=== PATIENT | male | born 1940 | race Caucasian/White ===

== ENCOUNTER 2016-10-07 17:21 | Day surgery (SDC) | payer MEDICARE ==
[~2016-10-07] VITALS: Ht 180.3 cm; Wt 102.1 kg
[~2016-10-07 17:21] MED LIST: ASPI-558 PO; CHOL100017 PO; FISH1CAP28 PO; LOSA25TA34 PO; METF-206 PO; MULT-806 PO; SIMV20TA80 PO; SULF-95 PO; TAMS0.4C46 PO
--- OUTSIDE RECORDS SUMMARY | 2016-10-07 17:25 | XMS REPORT | Summary of Care ---
Author Author Buzz Espinoza M.D. 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 Unavailable Unavailable No Assigned PCP-Pt Confirmed Unavailable Unavailable Unavailable Unavailable Functional Status Name Dates Details Functional status health issues are not documented Status: Name Dates Details Cognitive status health issues are not documented Status: Problems Name Dates Details Urethral stricture (598.9, N35.9) Status: Active Hypogonadism male (257.2, E29.1) Status: Active History of Pyuria (791.9, N39.0) Status: Resolved Medications Name Dates Details Aspirin Low Dose 81 MG TABS Active [place] 3 CAPS * Refills: 0 Active Vitamin D 2000 UNIT Oral Capsule * Refills: 0 Active MetFORMIN HCl - 1000 MG Oral Tablet * Refills: 0 Active Zocor 20 MG Oral Tablet * Refills: 0 Active Ginkgo Biloba 60 MG Oral Capsule * Refills: 0 * Start 15-Feb-2016 Active Zinc Picolinate 25 MG Oral Tablet TAKE 2 TABLET Daily * Refills: 0 * Start 15-Feb-2016 Active Allergies and Adverse Reactions Name Dates Details lisinopril (Allergy) Status: Active Penicillins (Allergy) Status: Active Past Medical History Name Dates Details History of Anxiety associated with depression (300.4, F41.8) Status: Resolved History of BPH with obstruction/lower urinary tract symptoms (600.01, N40.1) Status: Resolved History of diabetes mellitus (V12.29, Z86.39) Status: Resolved History of Dyslipidemia (272.4, E78.5) Status: Resolved History of hypertension (V12.59, Z86.79) Status: Resolved History of Obstructive sleep apnea (327.23, G47.33) Status: Resolved History of Pyuria (791.9, N39.0) Status: Resolved Procedures Procedure Dates Details History of Anal Fissurectomy History of Colonoscopy History of Cystoscopy (Diagnostic) Procedures not documented Immunization Name Dates Details Immunizations not documented Family History Name Dates Details Family history of Status: Active Family history of cerebrovascular accident (CVA) (V17.1, Z82.3) Status: Active Family history of hypertension (V17.49, Z82.49) Status: Active Name Dates Details Family history of cerebrovascular accident (CVA) (V17.1, Z82.3) Status: Active Social History Name Dates Details - Status: Name Dates Details Never smoker Vital Signs Date Test Result Details 15-Feb-2016 09:02 BP Systolic 135 mm[Hg] Status: Comments: Location: ; Position: BP Diastolic 61 mm[Hg] Status: Comments: Location: ; Position: Heart Rate 53 /min Status: Comments: Location: ; Height 70 in Status: Weight 215 lb Status: Body Mass Index Calculated 30.85 kg/m2 Status: Body Surface Area Calculated 2.15 m2 Status: Results Date Description Value Details Results not documented Plan of Care Name Dates Details Planned Observations Planned Goals not documented Planned Encounters Appointment; Provider: Buzz Espinoza M.D. On 20-Feb-2017 09:00 Instructions Name Dates Details Instructions not documented Encounters Appointment; Buzz Espinoza M.D. Encounter Diagnosis: Problem not documented On 15-Feb-2016 08:45
--- OUTSIDE RECORDS SUMMARY | 2016-10-07 17:25 | XMS REPORT | Continuity of Care Document ---
Author Author [facility] Organization [facility] Address Unknown Phone Unavailable Allergies Medications Problems Date Dx Coded Attending Type Code Diagnosis Diagnosed By 06/29/2013 Sapna UNDERWOOD, Dionte Eaton 327.23 OBSTRUCTIVE SLEEP APNEA (ADULT) (PEDIATRIC ) Procedures Results Encounters ACCT No. Visit Date/Time Discharge Status Pt. Type Provider Facility Loc./Unit Complaint [id number] 06/29/2013 20:00:00 2013 00:01:00 DIS Outpatient Sapna UNDERWOOD, Dionte nEglish [facility]
--- OUTSIDE RECORDS SUMMARY | 2016-10-07 17:35 | XMS REPORT | Continuity of Care Document ---
Author Author [facility] Organization [facility] Address Unknown Phone Unavailable Allergies Medications Problems Date Dx Coded Attending Type Code Diagnosis Diagnosed By 06/29/2013 Sapna UNDERWOOD, Dionte Eaton 327.23 OBSTRUCTIVE SLEEP APNEA (ADULT) (PEDIATRIC ) Procedures Results Encounters ACCT No. Visit Date/Time Discharge Status Pt. Type Provider Facility Loc./Unit Complaint [id number] 06/29/2013 20:00:00 2013 00:01:00 DIS Outpatient Sapna UNDERWOOD, Dionte English [facility]
--- NOTE | 2016-10-07 18:09 | ERPDOC ---
Departure Disposition Decision Date: Oct 07, 2016 Disposition Decision Time: 19:06 Disposition: 01 DISCHARGED HOME, SELF-CARE Impression Impression Impression: Primary Impression: Elevated troponin I level Additional Impression: Hypertension Hypertension type: essential hypertension Qualified Codes: I10 - Essential ( primary) hypertension Severity: Moderate Condition: Stable Seen By: Mid-level only Referrals: JANEY NICHOLSON MD (Family) Problems/Meds/Labs Reviewed?: Yes Medications reviewed and manag: Yes Follow up care ordered?: Yes Mental Status: Alert, Oriented HPI - Cardiac General Chief Complaint: Cardiac Complaint Stated Complaint: HBP Time Seen by Provider: 17:31 Source: patient Exam Limitations: no limitations HPI - Cardiac General Initial Comments He was at work today and had onset of left arm numbness. He states that it felt exactly like when your foot falls asleep. 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 It was 210/106. He does have a history of HTN but stopped taking his medication because he was having trouble with low blood pressures. He is very active at home. He denies any cardiac history himself or any chest pain or pressure. Denies any headache or blurred vision. Occurred At: home Onset/Timing: Gradual Duration: 12-24 hrs Severity: moderate Activities at Onset/Context: rest Prior CP/Workup: no prior chest pain, no prior cardiac workup Nitro Today/Relief: no nitro taken today Aspirin Today: 81 mg x 4, provided by ED Associated Symptoms: DENIES: chest pain, cough, diaphoresis, fever/chills, headaches, loss of appetite, malaise, nausea/vomiting, rash, seizure, shortness of breath, syncope, weakness Hx of Similar Symptoms: No Allergies: Coded Allergies: Penicillins (Verified Allergy, Unknown, 04/01/11) lisinopril (Verified Adverse Reaction, Unknown, COUGH, 05/30/13) Past History Past Medical History Metabolic: hypertension Psychological: anxiety, depression Surgical History Reproductive/: other (vasectomy) Joint: shoulder Family History Family History: Negative Vaccines Hx Influenza Vaccination: Yes (FALL 2012) Hx Pneumococcal Vaccination: No Social History Smoking Status: Never smoker Substance Use Type: does not use Alcohol Intake: none Review of Systems Constitutional Constitutional: DENIES: chills, dizziness, fatigue, fever, weakness Eyes Vision: DENIES: blurring, double vision ENMT Ears: DENIES: drainage, pain Sinuses: DENIES: congestion, rhinorrhea Mouth/Throat: DENIES: painful swallowing, scratchy throat, sore throat Cardiovascular Cardiac: DENIES: chest pain, dyspnea on exertion, orthopnea Rhythm/Rate: DENIES: irregular beat, palpitations Vascular: DENIES: pedal edema, unilateral swelling Pulmonary Respiratory: DENIES: cough, dyspnea, sputum, tachypnea GI Upper Abdomen: DENIES: nausea, pain, vomiting Lower Abdomen: DENIES: constipation, diarrhea, pain General: DENIES: dysuria, frequency, urgency Integumentary Skin: DENIES: rash Neurological General: numbness, tingling, DENIES: headache, weakness Physical Exam General General Nourishment: well nourished, well developed, appears stated age, no acute distress, adult General Body Habitus: well groomed Vitals and Pain First Documented Vital Signs Date Time Temp Pulse Resp B/P Pulse Ox O2 Delivery O2 Flow Rate FiO2 10/07/16 17:33 98.8 54 18 188/91 96 Room Air Weight: Kilograms: 93.000 Height (feet): 5 Height (inches): 11.00 Triage Pain Scale: RN VS reviewed by Provider: Yes Normal Exams: Eyes: Pupils are PERRLA w/ EOMI, No scleral icterus, irritation, or foreign bodies noted ENMT: No facial trauma, nasal exudates, pharyngeal erythema, or exudates are noted Neck: Full range of motion, without adenopathy, JVD, bruits or thyromegaly Chest/Resp: Clear all pompa, with good airflow, and symmetry bilaterally CV: Regular rate and rhythm, without murmur or gallop, Pulses 2+ all extremities, capillary refill, <2 seconds all ext., no pedal edema noted Abdomen: Bowel sounds positive, soft, non-tender, non-distended, no hepatosplenomegaly, masses or bruits noted Lymphatic: No lymphadenopathy, or lymphedema noted Integumentary: No rashes, hives, or bruising noted Neurologic: Patient is alert, and oriented, cranial nerves, motor/sensory/ cerebellar, exams w/o gross deficits, to observation Psychiatric: Patient exhibits, appropriate attention, emotion and affect Differential Diagnoses Considering: Acute ME, Angina, Other (HTN, anxiety) Progress Results/Orders Orders Procedure Category Date Status Time Cbc W/Auto LAB 10/07/16 Complete Diff-Reflex Manual 17:47 Bmp - Basic Metabolic LAB 10/07/16 Complete Panel 17:47 Troponin I W LAB 10/07/16 Complete Hemolysis Index 17:47 EKG EKG 10/07/16 Logged 17:47 Iv Lock (Ed Only) EDM 10/07/16 Transmitted 17:47 Hydralazine PHA 10/07/16 Complete (Apresoline) 18:00 Place In Facility As: ADMIT 10/07/16 Transmitted Telemetry YANY 10/07/16 In Process 19:03 Troponin I W LAB 10/07/16 Logged Hemolysis Index 18:30 Troponin I W LAB 10/08/16 Verified Hemolysis Index 00:30 Troponin I W LAB 10/08/16 Verified Hemolysis Index 06:30 Enoxaparin (Lovenox) PHA 10/07/16 Complete 19:15 Aspirin (Asa) PHA 10/08/16 In Process 09:00 Lab Results Laboratory Tests Test 10/07/16 18:25 White Blood Count 10.2T/MM3 Red Blood Count 4.79M/MM3 Hemoglobin 15.6GM/DL Hematocrit 46.5% Mean Corpuscular Volume 97.1UM3 Mean Corpuscular Hemoglobin 32.6UUG Mean Corpuscular Hemoglobin Concent 33.5GM/DL RDW Standard Deviation 52.9FL Platelet Count 224T/MM3 Mean Platelet Volume 10.3UM3 Immature Granulocyte % (Auto) 0.2% Neutrophils (%) (Auto) 55.8% Lymphocytes (%) (Auto) 34.4% Monocytes (%) (Auto) 8.2% Eosinophils (%) (Auto) 1.2% Basophils (%) (Auto) 0.2% Absolute Immature Granulocyte (auto 0.02T/MM3 Absolute Neutrophils (auto) 5.7T/MM3 Absolute Lymphocytes (auto) 3.5T/MM3 Absolute Monocytes (auto) 0.8T/MM3 Absolute Eosinophils (auto) 0.1T/MM3 Absolute Basophils (auto) 0.0T/MM3 Turbidity < 20 Sodium Level 145MEQ/L Potassium Level 3.8MEQ/L Chloride Level 106MEQ/L Carbon Dioxide Level 28MEQ/L Anion Gap 11MEQ/L Blood Urea Nitrogen 14.0MG/DL Creatinine 1.2MG/DL Glomerular Filtration Rate Calc 59 BUN/Creatinine Ratio 12RATIO Glucose Level 111MG/DL Calculated Osmolality 281MOSM/KG Calcium Level 9.8MG/DL Icterus Index < 2 Troponin I 0.140ng/ml Chemistry Specimen Hemolysis < 15 Medications Current ED Medications Hydralazine HCl (Apresoline) 10 mg O ONCE IV Last administered on 10/07/16t 18 :31; Start 10/07/16 at 18:00; Stop 10/07/16 at 18:01; Status DC Progress Progress CBC is normal. BMP is negative but troponin however is 0.14. He continues to deny any chest pain at all. Did speak with Dr Rabago. He is without any ST elevation or EKG changes. He will be admitted surgical care unit for serial troponins. TREVON KASPER APRN Oct 07, 2016 18:09
[2016-10-07] MEDS ORDERED: UBID100C10 PO (18:11)
[2016-10-07] MEDS ORDERED: [UNRECOGNIZED DRUG - OTHER] PO (18:11)
[2016-10-07] MEDS ORDERED: vital reds PO (18:11)
[2016-10-07] MEDS ORDERED: CALC-946 PO (18:13)
[2016-10-07] MEDS ORDERED: TEST200V21 IM (18:13)
[2016-10-07] MEDS ORDERED: LOSA1TAB96 PO (18:17)
[2016-10-07] MEDS ORDERED: curcumin PO (18:17)
[2016-10-07] MEDS ORDERED: GAMM1POW PO (18:17)
[2016-10-07] MEDS ORDERED: 5-HY50CA2 PO (18:18)
[2016-10-07] MEDS ORDERED: 7-OX5POW2 PO (18:19)
[2016-10-07 18:34] LABS: BASOPHILS % (AUTO) 0.2 % (0-2); EOSINOPHILS # (AUTO) 0.1 T/MM3 (0-0.5); EOSINOPHILS % (AUTO) 1.2 % (0-4); HCT - HEMATOCRIT 46.5 % (41-53); HGB - HEMOGLOBIN 15.6 GM/DL (13.5-17.5); IMMATURE GRANULOCYTE # (AUTO) 0.02 T/MM3 (0.00-0.03); IMMATURE GRANULOCYTE % (AUTO) 0.2 % (0.0-0.5); LYMPHOCYTES # (AUTO) 3.5 T/MM3 (1-4.8); LYMPHOCYTES % (AUTO) 34.4 % (23-45); MEAN CORPUSCULAR HGB 32.6 UUG (26-34); MEAN CORPUSCULAR HGB CONC(MCHC 33.5 GM/DL (31-37); MEAN CORPUSCULAR VOLUME 97.1 UM3 (80-100); MEAN PLATELET VOLUME 10.3 UM3 (9.4-12.4); MONOCYTES # (AUTO) 0.8 T/MM3 (0-0.8); MONOCYTES % (AUTO) 8.2 % (0-9.0); NEUTROPHILS #(AUTO)-ABSOLUTE 5.7 T/MM3 (1.8-7.7); NEUTROPHILS % (AUTO) 55.8 % (33-66); RED BLOOD COUNT 4.79 M/MM3 (4.50-5.90); WBC - WHITE BLOOD COUNT 10.2 T/MM3 (4.5-11.0)
[2016-10-07 18:39] LABS: ANION GAP 11 MEQ/L (5-15); BUN/CREATININE RATIO 12 RATIO (6-26); CALCIUM 9.8 MG/DL (8.4-10.2); CHLORIDE 106 MEQ/L (98-107); CO2 - CARBON DIOXIDE 28 MEQ/L (22-30); CREATININE 1.2 MG/DL (0.8-1.5); GLOMERULAR FILTRATION RATE 59; GLUCOSE 111 MG/DL (75-110); POTASSIUM 3.8 MEQ/L (3.6-5); SODIUM 145 MEQ/L (134-144)
[2016-10-07] MEDS ORDERED: ENOXAPARIN 100 MG/ML INJECTION SQ ONE (19:15)
--- OUTSIDE RECORDS SUMMARY | 2016-10-07 19:15 | XMS REPORT | Continuity of Care Document ---
Author Author [facility] Organization [facility] Address Unknown Phone Unavailable Allergies Medications Problems Date Dx Coded Attending Type Code Diagnosis Diagnosed By 06/29/2013 Sapna UNDERWOOD, Dionte Eaton 327.23 OBSTRUCTIVE SLEEP APNEA (ADULT) (PEDIATRIC ) Procedures Results Encounters ACCT No. Visit Date/Time Discharge Status Pt. Type Provider Facility Loc./Unit Complaint [id number] 06/29/2013 20:00:00 2013 00:01:00 DIS Outpatient Sapna UNDERWOOD, Dionte English [facility]
--- NOTE | 2016-10-07 19:40 | NUR ---
ADMISSION PT ADMITTED FROM ER TO 118 AT THIS TIME. PT TRANSFERRED SELF FROM CART TO BED. PT ABLE TO ANSWER ADMISSION QUESTIONS. WILL CONTINUE TO MONITOR.
[2016-10-07 19:48] VITALS: BP 185/80; PULSE 70; RESP 18; TEMP 97.8; O2SAT 98
[2016-10-07 19:49] VITALS: Ht 180.3 cm; Wt 102.1 kg
--- NOTE | 2016-10-07 22:33 | HPPDOC ---
HPI - Adult Date DATE: 10/07/16 TIME: 21:58 General Date of Admission Date of Admission: Oct 07, 2016 at 19:05 Chief Complaint: HTN and left arm numbness. History of Present Illness This is a 76 year old patient with a history of HTN, CECILIO uses BPAP, DMT2, and BPH who is very active. He has run in marathons in his 70's. He has been jogging and biking until recent injury to left foot. Now he biking and lifting weights 4 x a week at the . He has been on losartan / HCTZ 100/25mg daily and his BP became low and the BP med was cut in half, but his BP remained low and he was dizzy. Therefore Dr. Ware had him stop the BP med. He denies any cardiac history. About 10yrs ago he had a treadmill stress test which was ok. He has low testosterone and on 09/04/2016 he started taking testosterone shots bi weekly given by his who is a retired RN. She checks his BP regularly and his BP has been running 120/80. Yesterday his BP was 140/80 and he took his losartan/ HCTZ 110/25mg. This morning his BP was 150/80 in left arm and 144/76 in the right arm and he took a losartan/HCTZ per 's advise. 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 His first and second finger became numb for about 10 minutes. His left inner forearm had been numb as well. His coworker noted his face was reddened and took his BP which he reported was 210/106, He went home and his brought him into [facility] ER. In ER ECG: SB, HR 47. Trop elevated at 0.14. CBC and BMP all unremarkable. In ER he received ASA, Hydralazine 10mg IV which brought his SBP down to 140's then back up the 180s Dr. Rabago was contacted and admitted pt as OBS He denies chest pain, SOB, nausea, diaphoresis, palpitations, headache, blurry vision, or recent sickness. The only pain he has is a slight pain in his left foot/ankle. He does have mild swelling in his ankles enid. He last worked out last week with no chest pain. Past Medical History Past Medical History Metabolic: diabetes (Type 2.), hypercholesterolemia (statins cause muscle cramps. managed by PCP. ), hypertension Respiratory: other (Obstructive sleep apnea - uses Trilevel bipap managed by DR. Alejo. ) Male: BPH, UTI, other (low testerone and started biweekly testerone shots on 09/04/2016) Musculoskeletal: other (Shoulder injuries enid and had right shoulder surgery 2012. A dog attacked him while jogging and he fell injuring his sholuders enid. ) Psychological: anxiety, depression PMH Comments Urethral stricture and self caths every 2 weeks. Surgical History Reproductive/: other (vasectomy and cystocopy. ) Joint: shoulder (right 09/2012) Current Medications Home Meds Reported Medications 7-Oxodehydroepiandrosterone,Mc (7-Keto Dhea) 5 Gm Powder, 50 MG PO DAILY 10/07/16 5-Hydroxytryptophan (5-Htp) 50 Mg Capsule, 50 MG PO HS 10/07/16 Gamma-Aminobutyric Acid (Aminobutyric Acid) 1 Gm Powder, 500 MG PO HS 10/07/16 [curcumin] No Conflict Check, 665 MG PO DAILY 10/07/16 Cholecalciferol (Vitamin D3) (Vitamin D3) 5,000 Unit Tablet, 5000 UNIT PO DAILY , 3 Refills 10/07/16 Testosterone Cypionate (Testosterone Cypionate) 200 Mg/1 Ml Vial, 200 MG IM Q2WK 10/07/16 [phytoplankton] No Conflict Check, 5000 MG PO DAILY 10/07/16 Ubidecarenone (Coq-10) 100 Mg Capsule, 100 MG PO DAILY 10/07/16 [vital reds] No Conflict Check, 1 TAB PO DAILY 10/07/16 Metformin Hcl (Metformin Hcl) 1,000 Mg Tablet, 1000 MG PO BID 04/01/11 Multivitamins (Multivitamin) 1 Tab Tablet, 1 TAB PO DAILY 04/01/11 Aspirin (Aspir 81) 81 Mg Tablet., 81 MG PO MoWeFr@HS 04/01/11 Allergies: Coded Allergies: Penicillins (Verified Allergy, Unknown, 04/01/11) lisinopril (Verified Adverse Reaction, Unknown, COUGH, 05/30/13) Family History FOUND: CVA Family History Comments Father at 56 of a stroke. Bother is alive and has had 2 strokes affecting vision. 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 He works out at the 4x a week. biking and lifting weights. Review of Systems Constitutional: DENIES: chills, dizziness, fatigue, fever, weakness, weight gain, weight loss Eyes Vision: DENIES: blurring ENMT Mouth/Throat: DENIES: sore throat Cardiovascular DENIES: chest pain, dyspnea on exertion, murmur, orthopnea, paroxysmal nocturnal dysp Rhythm/Rate: DENIES: irregular beat, palpitations Vascular: pedal edema Pulmonary Respiratory: DENIES: cough, dyspnea GI Upper Abdomen: DENIES: nausea Lower Abdomen: DENIES: blood in stool, constipation, diarrhea General: DENIES: dysuria, hematuria Male: other (urethral stricture and self caths every 2 weeks. ) Musculoskeletal General: edema (+1 in ankles enid had him wear support stockings today. ), other (left foot pain), DENIES: weakness Integumentary Skin: DENIES: rash, sores Nails: DENIES: cupping, pitting Neurological General: numbness (in 1st and 2nd fingers on left hand and left forearm for 1 minutes. ), other (lift weights regularly), DENIES: change in strength, headache , weakness Psychiatric Psychiatric: DENIES: anxiety, depression Endocrine DENIES: heat/cold intolerance Hematologic/Lymphatic DENIES: easy bruising Physical Exam General General Nourishment: well nourished, well developed General Body Habitus: well groomed Vital Signs Vital Signs Date Time Temp Pulse Resp B/P Pulse Ox O2 Delivery O2 Flow Rate FiO2 10/07/16 19:48 97.8 70 18 185/80 98 Room Air Height (Feet): 5 Height (Inches): 11.00 Telemetry Rhythm: Sinus Rhythm, Sinus Bradycardia Eyes Brief: NOT FOUND: scleral icterus, trauma ENMT Brief: FOUND: hearing intact, mucosa moist, normal dentition Neck Brief: NOT FOUND: JVD, carotid bruits, midline Respiratory Brief: FOUND: clear all pompa, equal bilaterally Cardiovascular (brief) Cardiac Brief: FOUND: pedal edema (+1), regular rate, regular rhythm, NOT FOUND : murmur Capillary Refill: <2 sec, other (pedal pulses palpable) Abdomen (brief) Abdominal Brief: FOUND: BS normo active x4, distended, other (has regular BM' s. ), soft, NOT FOUND: tender Musculoskeletal (brief) Musculoskeletal Brief: FOUND: extremities move equally Integumentary (brief) Integumentary Brief: FOUND: dry, pink, warm, NOT FOUND: rash Neurologic (brief) Neurological Brief: FOUND: motor, sensory, NOT FOUND: facial droop, ptosis Neurologic RN Documented GCS Eye Opening: Verbal: Motor: Total: Psychiatric (brief) FOUND: alert, attentive, normal affect, oriented Laboratory Laboratory Tests Test 10/07/16 18:25 White Blood Count 10.2T/MM3 Red Blood Count 4.79M/MM3 Hemoglobin 15.6GM/DL Hematocrit 46.5% Mean Corpuscular Volume 97.1UM3 Mean Corpuscular Hemoglobin 32.6UUG Mean Corpuscular Hemoglobin Concent 33.5GM/DL RDW Standard Deviation 52.9FL Platelet Count 224T/MM3 Mean Platelet Volume 10.3UM3 Immature Granulocyte % (Auto) 0.2% Neutrophils (%) (Auto) 55.8% Lymphocytes (%) (Auto) 34.4% Monocytes (%) (Auto) 8.2% Eosinophils (%) (Auto) 1.2% Basophils (%) (Auto) 0.2% Absolute Immature Granulocyte (auto 0.02T/MM3 Absolute Neutrophils (auto) 5.7T/MM3 Absolute Lymphocytes (auto) 3.5T/MM3 Absolute Monocytes (auto) 0.8T/MM3 Absolute Eosinophils (auto) 0.1T/MM3 Absolute Basophils (auto) 0.0T/MM3 Turbidity < 20 Sodium Level 145MEQ/L Potassium Level 3.8MEQ/L Chloride Level 106MEQ/L Carbon Dioxide Level 28MEQ/L Anion Gap 11MEQ/L Blood Urea Nitrogen 14.0MG/DL Creatinine 1.2MG/DL Glomerular Filtration Rate Calc 59 BUN/Creatinine Ratio 12RATIO Glucose Level 111MG/DL Calculated Osmolality 281MOSM/KG Calcium Level 9.8MG/DL Icterus Index < 2 Troponin I 0.140ng/ml Chemistry Specimen Hemolysis < 15 EKG 10/07/2016 ECG: SB, HR 47. Radiology no CXR ordered. Assessment & Plan Problems: (1) Elevated troponin I level Status: Acute Assessment & Plan: NSTEMI - unsure of type. First trop 0.14, trend trop x3 total. ECG: SB no ST changes, no ischemia. Repeat ECG in am. Given ASA 324mg and lovenox 1mg/kg x1 in ER. Start ASA 81mg daily. Denies any chest pain, tightness, or pressure at any time. The numbness in his 1st and 2nd fingers and left forearm lasted only 10min. Maybe a pinched nerve. Elevated trop may be due to HTN. will trend trop. With History of DM, CECILIO, and HTN we will consider heart cath tomorrow around 1:00. vs outpt stress test. Echo to evaluate structure and function of heart. Check fasting lipid profile at 6:30 am. Then may eat breakfast. then NPO for potential heart cath in afternoon. He has muscle aches with statins. not sure of which statins he has tried. (2) Hypertension Status: Acute Qualifiers: Hypertension type: essential hypertension Qualified Codes: I10 - Essential (primary) hypertension Assessment & Plan: SBP at this morning at home was 150 and he took a losartan/ HCTZ 100/25 mg this am. At work about noon BP was 210/106. In ER BP 188/91 and HR 50's and received hydralazine at 1830 and 1924 and BP went down and back up to the 180's. Currently SBP 160's and HR 90's. Cot losartan/HCTZ 100/25 mg daily. Add BB per ACS protocol, metoprolol 25mg BID first dose now. His HR is likely to come back down to the 50's and 60's and will need to stop BB. Did not use amlodipine with swelling in ankles. Unsure reason BP is elevated. foot pain is not significant. (3) Obstructive sleep apnea Status: Chronic Assessment & Plan: Trilevel CPAP brought from home. (4) Diabetes mellitus type 2, controlled Status: Chronic Qualifiers: Diabetes mellitus complication status: without complication Diabetes mellitus extermination inspector insulin use: without skilled nursing use Qualified Codes: E11.9 - Type 2 diabetes mellitus without complications Assessment & Plan: Hold metformin in case we decide to do a heart cath. FBS and 2 hr pc. Diabetic diet. (5) BPH (benign prostatic hyperplasia) Status: Chronic Assessment & Plan: ureteral stricture so self caths every 2 weeks to keep open. (6) Edema of both ankles Status: Chronic Assessment & Plan: Mild. Echo to evaluate structure and function of heart to determine if HF is cause of edema. (7) Left foot pain Status: Acute Assessment & Plan: Will order XRY of foot and or ankle for the moring since he has gone to sleep after we clarify. DVT Prophylaxis: Lovenox GI Prophylaxis: Pepcid Code Status Full Code Hospital Course Summary Disclaimer The hospital course summary below is not to be considered part of the above Progress Note. ASHLY ELAM CROSSING FLAGMAN Oct 07, 2016 22:12
[2016-10-07] MEDS ORDERED: ONDANSETRON 4mg/2ml INJECTION IV PRN (22:45)
[2016-10-07] MEDS ORDERED: MORPHINE SULFATE 2 MG SYRINGE IV PRN (22:45)
[2016-10-07] MEDS ORDERED: NITROGLYCERIN 0.4 MG SUBLINGUAL TABLET SL PRN (22:45)
[2016-10-07 22:48] VITALS: BP 163/80; PULSE 90; RESP 18; TEMP 97.6; O2SAT 96
[2016-10-07 22:49] VITALS: BP 166/74; PULSE 93
[2016-10-07 22:50] VITALS: BP 156/72; PULSE 100
[2016-10-07] MEDS ORDERED: ACETAMINOPHEN 325 MG TABLET PO PRN (23:00)
[2016-10-08] VITALS (11 sets, daily range): BP systolic 120–151; BP diastolic 63–85; PULSE 52–66; RESP 11–22; TEMP 97.7–98.4; O2SAT 96–97
[2016-10-08 00:40] LABS: MAGNESIUM 2.1 MG/DL (1.6-2.3)
--- NOTE | 2016-10-08 05:56 | NUR ---
SHIFT SUMMARY PT HAS BEEN RESTING QUIETLY MOST OF THE NIGHT. HE DENIES PAIN AND CP. BP HAS CAME DOWN TO 130s SYSTOLIC. PT IS ALERT AND ORIENTED X3. DID HAVE THE V-TACH DURING THE NIGHT THAT WAS REPORTED TO ASHLY ELAM, PT WAS ASYMPTOMATIC. HR DID GET LOW 45 DURING THE NIGHT-ALSO REPORTED TO ASHLY. PT IS UP AD PEREZ. WILL CONTINUE TO MONITOR.
[2016-10-08] MEDS ORDERED: OMEPRAZOLE 20 MG CAPSULE PO SCH (06:30)
[2016-10-08 07:03] LABS: ALBUMIN 3.5 G/DL (3.5-5.0); ALBUMIN/GLOBULIN RATIO 1.2 RATIO (1.1-2.2); ALKALINE PHOSPHATASE 49 U/L (38-126); ALT (SGPT) 34 U/L (21-72); ANION GAP 13 MEQ/L (5-15); AST (SGOT) 22 U/L (17-59); BUN/CREATININE RATIO 12 RATIO (6-26); CALCIUM 9.1 MG/DL (8.4-10.2); CHLORIDE 107 MEQ/L (98-107); CO2 - CARBON DIOXIDE 25 MEQ/L (22-30); CREATININE 1.2 MG/DL (0.8-1.5); GLOMERULAR FILTRATION RATE 59; GLUCOSE 119 MG/DL (75-110); POTASSIUM 3.8 MEQ/L (3.6-5); SODIUM 145 MEQ/L (134-144); TOTAL PROTEIN 6.5 G/DL (6.3-8.2)
--- NOTE | 2016-10-08 08:03 | NUR ---
NPO STATUS PT JUST FINISHED BREAKFAST WHEN NPO ORDER CAME THROUGH. EXPLAINED TO PT WHO VERBALIZES UNDERSTANDING.
--- NOTE | 2016-10-08 08:29 | DI ---
Indication: ITS.REASON: LEFT FOOT PAIN PROCEDURE: FOOT LEFT 3 VIEWS: Encounter: Initial Comparison: None Findings: There is no acute fracture, dislocation or malalignment identified. Impression: No acute osseous abnormality. .
[2016-10-08] MEDS ORDERED: LOSARTAN/HCTZ 100/25 TABLET PO SCH (09:00)
[2016-10-08] MEDS ORDERED: ASPIRIN *EC* 81mg TABLET PO SCH (09:00)
[2016-10-08] MEDS ORDERED: ASPIRIN 81 MG CHEWABLE TABLET PO SCH (09:00)
[2016-10-08] MEDS ORDERED: ENOXAPARIN 40 MG/0.4 ML INJECTION SQ SCH (09:00)
--- NOTE | 2016-10-08 09:15 | NUR ---
URINE RACKING STARTING COLLECTION FOR TEST AT THIS TIME
[2016-10-08] MEDS ORDERED: NORMAL SALINE 1,000 ML IV ONE (09:30)
[2016-10-08] MEDS ORDERED: LABETALOL 100 MG TABLET PO SCH (09:30)
--- NOTE | 2016-10-08 09:50 | PNPDOC ---
Subjective Date DATE: 10/08/16 TIME: 09:24 Subjective Moises is seen in his room on the Surgical Unit. He denies chest pain or pressure, palpitations, dyspnea, or recent illness. Objective Vital Signs Vital signs Vital Signs 10/07/16 10/07/16 10/07/16 10/07/16 22:48 22:48 22:49 22:50 Temp 97.6 Pulse 90 90 93 100 Resp 18 B/P 163/80 163/80 166/74 156/72 Pulse Ox 96 O2 Delivery Room Air 10/08/16 10/08/16 10/08/16 03:45 07:15 07:15 Temp 98.4 98.1 Pulse 56 60 60 Resp 18 16 16 B/P 137/65 139/74 Pulse Ox 96 97 O2 Delivery CPAP Room Air Telemetry Rhythm: Sinus Rhythm, Sinus Bradycardia Height (Feet): 5 Height (Inches): 11.00 Weight (Kilograms): 102.100 General Alert, Orientated x 3, Cooperative, No Acute Distress, Looks Stated Age ENMT (Brief) mucosa moist Neck (Brief) NOT FOUND: JVD, carotid bruits Respiratory (Brief) clear all pompa, equal bilaterally, NOT FOUND: rales, wheezes Cardiovascular (Brief) pedal edema, regular rhythm, NOT FOUND: click, gallop, murmur, regular rate ( bradycardic), rub Abdomen (Brief) BS normo active x4, soft, NOT FOUND: tender Integumentary (Brief) dry, other (flushed cheeks), pink, warm Psychiatric (Brief) alert, oriented Laboratory Laboratory Laboratory Tests Test 10/07/16 18:25 10/08/16 00:10 10/08/16 05:51 10/08/16 06:44 White Blood Count 10.2T/MM3 Red Blood Count 4.79M/MM3 Hemoglobin 15.6GM/DL Hematocrit 46.5% Mean Corpuscular Volume 97.1UM3 Mean Corpuscular Hemoglobin 32.6UUG Mean Corpuscular Hemoglobin Concent 33.5GM/DL RDW Standard Deviation 52.9FL Platelet Count 224T/MM3 Mean Platelet Volume 10.3UM3 Immature Granulocyte % (Auto) 0.2% Neutrophils (%) (Auto) 55.8% Lymphocytes (%) (Auto) 34.4% Monocytes (%) (Auto) 8.2% Eosinophils (%) (Auto) 1.2% Basophils (%) (Auto) 0.2% Absolute Immature Granulocyte (auto 0.02T/MM3 Absolute Neutrophils (auto) 5.7T/MM3 Absolute Lymphocytes (auto) 3.5T/MM3 Absolute Monocytes (auto) 0.8T/MM3 Absolute Eosinophils (auto) 0.1T/MM3 Absolute Basophils (auto) 0.0T/MM3 Turbidity < 20 < 20 Sodium Level 145MEQ/L 145MEQ/L Potassium Level 3.8MEQ/L 3.8MEQ/L Chloride Level 106MEQ/L 107MEQ/L Carbon Dioxide Level 28MEQ/L 25MEQ/L Anion Gap 11MEQ/L 13MEQ/L Blood Urea Nitrogen 14.0MG/DL 14.0MG/DL Creatinine 1.2MG/DL 1.2MG/DL Glomerular Filtration Rate Calc 59 59 BUN/Creatinine Ratio 12RATIO 12RATIO Glucose Level 111MG/DL 119MG/DL Calculated Osmolality 281MOSM/KG 281MOSM/KG Calcium Level 9.8MG/DL 9.1MG/DL Icterus Index < 2 < 2 Troponin I 0.140ng/ml 0.136ng/ml 0.172ng/ml Chemistry Specimen Hemolysis < 15 < 15 < 15 Magnesium Level 2.1MG/DL NE-Dqs-V-Type Natriuretic Peptide 70PG/ML Thyroid Stimulating Hormone (TSH) 2.57MIU/L Glucometer 93mg/dL Total Bilirubin 0.40MG/DL Conjugated Bilirubin 0.00MG/DL Unconjugated Bilirubin 0.00MG/DL Aspartate Amino Transf (AST/SGOT) 22U/L Alanine Aminotransferase (ALT/SGPT) 34U/L Alkaline Phosphatase 49U/L Total Protein 6.5G/DL Albumin 3.5G/DL Globulin 3.0G/DL Albumin/Globulin Ratio 1.2RATIO Laboratory Tests 10/07/16 18:25 10/08/16 06:44 Laboratory Tests 10/07/16 18:25 EKG Sinus Bradycardia, Sinus Arrhythmia, no ischemic changes Medications Current Medications Aspirin (ASA) 324 mg DAILY PO Last administered on 10/07/16 19:24; Start 10/08 at 09:00 Hydralazine HCl (Apresoline) 10 mg O ONCE IV Last administered on 10/07/16 19 :24; Start 10/07/16 at 19:15; Stop 10/07/16 at 19:16; Status DC Morphine Sulfate (Morphine) 2 mg Q5-10M PRN IV CHEST PAIN; Start 10/07/16 at 22 :45 Enoxaparin Sodium (Lovenox) 40 mg DAILY SQ ; Start 10/08/16 at 09:00 Aspirin (Ecotrin) 81 mg DAILY PO ; Start 10/08/16 at 09:00 Nitroglycerin (Nitrostat) 0.4 mg Q5MIN PRN SL CHEST PAIN; Start 10/07/16 at 22: 45 Omeprazole (Prilosec) 20 mg ACB PO Last administered on 10/08/16 05:43; Start 10/08/16 at 06:30 Ondansetron HCl (Zofran) 4 mg Q6H PRN IV NAUSEA &/OR VOMITING; Start 10/07/16 at 22:45 HCTZ/Losartan Potassium (Hyzaar 100/25) 1 tab DAILY PO ; Start 10/08/16 at 09:00 Metoprolol Tartrate (Lopressor) 25 mg BIDWM PO Last administered on 10/08/16 00:06; Start 10/07/16 at 23:00 Acetaminophen (Tylenol Regular Strength) 650 mg Q5H PRN PO DISCOMFORT; Start at 23:00 Assessment & Plan Problems: (1) Elevated troponin I level Status: Acute Assessment & Plan: NSTEMI - troponin 1) 0.140, 2) 0.136, 3) 0.172 ECG: SB no ST changes, no ischemia. Lovenox 1mg/kg x1 in ER. Start ASA 81mg daily. Denies any chest pain, tightness, or pressure at any time. The numbness in his 1st and 2nd fingers and left forearm lasted only 10min. Maybe a pinched nerve. Elevated trop may be due to HTN. With History of DM, CECILIO, and HTN we will heart cath around 1:00. Echo to evaluate structure and function of heart. Checked fasting lipid profile NPO for heart cath this afternoon. He has muscle aches with statins. not sure of which statins he has tried. (2) Hypertension Status: Acute Qualifiers: Hypertension type: essential hypertension Qualified Codes: I10 - Essential (primary) hypertension Assessment & Plan: Recently started testosterone injections. He has had 3 and has noted increasing BP after each. Continue losartan/HCTZ 100/25 mg daily. Change BB to Labetalol 100mg BID. Continue to monitor HR. Did not use amlodipine with swelling in ankles. 24 hour Urine for protein, metanephrines, catecholamines, and VMA to start here , may finish as an outpatient. Renal angiogram with heart cath (3) Obstructive sleep apnea Status: Chronic Assessment & Plan: Trilevel CPAP brought from home. 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 FBS and 2 hr pc. Diabetic diet. (5) BPH (benign prostatic hyperplasia) Status: Chronic Assessment & Plan: ureteral stricture so self caths every 2 weeks to keep open. (6) Edema of both ankles Status: Chronic Assessment & Plan: Mild. Echo to evaluate structure and function of heart to determine if HF is cause of edema. (7) Left foot pain Status: Acute Assessment & Plan: Will order XRY of foot and or ankle for the moring since he has gone to sleep after we clarify. Plan/Intensity of Service 10/07/16 NSTEMI - unsure of type. First trop 0.14, trend trop x3 total. ECG: SB no ST changes, no ischemia. Repeat ECG in am. Given ASA 324mg and lovenox 1mg/kg x1 in ER. Start ASA 81mg daily. Denies any chest pain, tightness, or pressure at any time. The numbness in his 1st and 2nd fingers and left forearm lasted only 10min. Maybe a pinched nerve. Elevated trop may be due to HTN. will trend trop. With History of DM, CECILIO, and HTN we will consider heart cath tomorrow around 1:00. vs outpt stress test. Echo to evaluate structure and function of heart. Check fasting lipid profile at 6:30 am. Then may eat breakfast. then NPO for potential heart cath in afternoon. He has muscle aches with statins. not sure of which statins he has tried. SBP at this morning at home was 150 and he took a losartan/HCTZ 100/25 mg this am. At work about noon BP was 210/106. In ER BP 188/91 and HR 50's and received hydralazine at 1830 and 1924 and BP went down and back up to the 180's. Currently SBP 160's and HR 90's. Cot losartan/HCTZ 100/25 mg daily. Add BB per ACS protocol, metoprolol 25mg BID first dose now. His HR is likely to come back down to the 50's and 60's and will need to stop BB. Did not use amlodipine with swelling in ankles. Unsure reason BP is elevated. foot pain is not significant. Hold metformin in case we decide to do a heart cath. FBS and 2 hr pc. Diabetic diet. 10/08/16 Elevated trop :may be due to HTN. With History of DM, CECILIO, and HTN we will do a Left heart catheterization with possible PCI with renal angiogram this afternoon. HTN: Continue losartan/HCTZ 100/25 mg daily. Change BB to Labetalol 100mg BID. Continue to monitor HR. Did not use amlodipine with swelling in ankles. 24 hour Urine for protein, metanephrines, catecholamines, and VMA to start here , may finish as an outpatient. Renal angiogram with heart cath. DM: Hold metformin. FBS and 2 hr pc. Diabetic diet. MARITO FERREIRA APRN Oct 08, 2016 09:28
--- NOTE | 2016-10-08 10:18 | DI ---
INDICATION: ITS.REASON: chest pain PROCEDURE: CHEST 2-VIEWS UPRIGHT (PA \T\ LAT) Encounter: Initial COMPARISON: September 09, 2012 Findings: The lungs are stable in appearance without new focal airspace consolidation. There is no pleural effusion or pneumothorax. The heart size, pulmonary vascularity and mediastinal contours are unchanged. IMPRESSION: Stable appearance of the chest without acute cardiopulmonary disease. .
--- NOTE | 2016-10-08 11:12 | NUR ---
CM CM IN TO VISIT WITH PT. HE IS ALERT AND ORIENTED. HE DENIES DC NEEDS. HE PLANS TO RETURN HOME. HE IS GIVEN CM CONTACT INFORMATION. Addendum: 10/08/16 at 1113 by ANA WOLF RN Amended: Links added.
[2016-10-08] MEDS ORDERED: LIDOCAINE 1% (10mg/ml) 30ml SDV ONE (12:33)
[2016-10-08] MEDS ORDERED: HEPARIN 1,000units in NS 500ml BAG IV ONE (12:33)
[2016-10-08] MEDS ORDERED: IOHEXOL 350mg/ml 200ml BOTTLE ONE ×2 (12:34→13:15)
[2016-10-08] MEDS ORDERED: MIDAZOLAM 2mg/2ml INJECTION ONE (12:48)
[2016-10-08] MEDS ORDERED: FENTANYL 100mcg/2ml INJECTION ONE (12:48)
--- NOTE | 2016-10-08 12:50 | NUR ---
CATH PT TO REPORTING COORDINATOR PER CATH CART.
--- NOTE | 2016-10-08 12:53 | NUR ---
RN CHANGE RECEIVED REPORT FROM Ulysses VIEYRA RN. TOOK OVER PT CARE AT 1245.
[2016-10-08] MEDS ORDERED: ACETAMINOPHEN 325 MG TABLET PO PRN (13:30)
[2016-10-08] MEDS ORDERED: ONDANSETRON 4mg/2ml INJECTION IV PRN (13:30)
[2016-10-08] MEDS ORDERED: BISACODYL 10 MG SUPPOSITORY RECTALLY PRN (13:30)
[2016-10-08] MEDS ORDERED: LORAZEPAM 2 MG/ML INJECTION IV PRN (13:30)
[2016-10-08] MEDS ORDERED: LORAZEPAM 1 MG TABLET PO PRN (13:30)
[2016-10-08] MEDS ORDERED: MILK OF MAGNESIA 30 ML SUSP PO PRN (13:30)
[2016-10-08] MEDS ORDERED: MAG-AL + SIM LIQUID 30 ML UDC PO PRN (13:30)
[2016-10-08] MEDS ORDERED: METOCLOPRAMIDE 10mg/2ml INJECTION IV PRN (13:30)
[2016-10-08] MEDS ORDERED: HYDROCODONE/APAP 5 mg/325 mg TABLET PO PRN (13:30)
[2016-10-08] MEDS ORDERED: PROMETHAZINE 25 MG INJECTION IV PRN (13:30)
[2016-10-08] MEDS ORDERED: MORPHINE SULFATE 4 MG SYRINGE IV PRN ×2 (13:30)
[2016-10-08] MEDS ORDERED: NITROGLYCERIN 0.4 MG SUBLINGUAL TABLET SL PRN (13:30)
[2016-10-08] MEDS ORDERED: BISACODYL 5 MG E.C. TABLET PO PRN (13:30)
[2016-10-08] MEDS ORDERED: ATROPINE 1 MG/ML VIAL IV PRN (13:30)
[2016-10-08] MEDS ORDERED: AMLODIPINE 10 MG TABLET PO SCH (13:45)
[2016-10-08] MEDS ORDERED: NITR0.4T SL (13:48)
[2016-10-08] MEDS ORDERED: LOSA1TAB96 PO (13:48)
[2016-10-08] MEDS ORDERED: AMLO10TA2 PO (13:48)
--- NOTE | 2016-10-08 17:21 | NUR ---
DISMISSAL PT DISMISSED TO HOME VIA AMBULATION AT 1715. PT BELONGINGS PACKED, GO HOME INSTRUCTIONS GIVEN, PT DRESSED AND IVL PULLED. SENT 24HR URINE COLLECTION WITH PT WELL AND INSTRUCTED ON THE STUDY.
--- NOTE | 2016-10-08 19:13 | ECHOF ---
PROCEDURES October 08, 2016 This is a two-dimensional echo with spectral Doppler, color-flow and M-mode. It was obtained in a patient with hypertension and elevated troponin. Left atrial dimension is at the upper limits of normal. Left ventricular end-diastolic dimension is at the upper limits of normal. Left ventricular wall thickness is increased. LV systolic function is normal with ejection fraction of 66%. Right atrium is normal. Right ventricle is normal. Aortic root dimension is normal. Mitral annulus is calcified with normal mitral valve leaflets. There is no mitral stenosis. Trace of mitral regurgitation is present. Aortic valve shows fibrocalcific changes with no stenosis or insufficiency. Tricuspid valve shows trace of tricuspid regurgitation with normal estimated pulmonary artery systolic pressure of 25. Pulmonary valve shows no pulmonary insufficiency. There is no pericardial effusion. IMPRESSION 1. Normal LV systolic function with ejection fraction of 66%. 2. Concentric left ventricular hypertrophy. 3. Mitral annulus calcification with trace of mitral regurgitation. 4. Aortic sclerosis. 5. Trace of tricuspid regurgitation with normal estimated pulmonary artery systolic pressure of 25. MTDD
--- NOTE | 2016-10-08 19:18 | CVPROF ---
CARDIAC CATHETERIZATION DATE OF PROCEDURE October 08, 2016 The patient is a 76-year-old gentleman who was admitted with hypertensive urgency and elevation in troponin and was referred for further evaluation by cardiac catheterization and renal angiography. Informed consent was obtained after explaining the procedure and the potential risks to the patient who agreed to proceed with the procedure. PROCEDURE 1. Left heart catheterization. 2. Coronary angiography. 3. Left ventriculography. 4. Abdominal aortography by placing catheter in abdominal aorta across the renal arteries. 5. Right femoral angiography to visualize the vessel for closure device. 6. Successful Mynx deployment for hemostasis. TECHNIQUE He was prepped and draped in the usual sterile techniques. 1% lidocaine was used for local anesthesia. Using modified Seldinger technique, arterial access was obtained into the right femoral artery with placement of a 6-Azeri arterial sheath. Conscious sedation was performed using Versed and fentanyl. LEFT VENTRICULOGRAPHY Left ventriculography in single-plane KUMAR shallow projection showed normal LV systolic function with ejection fraction of about 65% with no mitral regurgitation or gradient across the aortic valve. LVEDP was about 14. CORONARY ANGIOGRAPHY Left main was free of significant lesions. Left anterior descending artery was a medium-caliber vessel with minor irregularities but no significant lesions. First diagonal was a [id number] caliber vessel with no significant lesions. Second diagonal was a medium-caliber vessel with no significant lesions. Left circumflex artery had about 20%-30% stenosis proximally with no hemodynamically significant lesions. Right coronary artery had minor irregularities but no significant lesions in RCA, PDA or posterolateral arteries. ABDOMINAL AORTOGRAPHY Abdominal aortography showed smooth abdominal aorta with no significant lesions or aneurysms. There were single renal arteries to each kidney which were widely patent. Right femoral angiography showed patent common femoral, proximal SFA and profunda and therefore Mynx was used for hemostasis. IMPRESSION 1. Mild coronary artery disease as described above. 2. Normal LV systolic function with ejection fraction of about 65%. 3. No significant renal artery stenosis. 4. Successful Mynx deployment for hemostasis. PLAN Medical management. DERDA
[2016-10-09 00:34] LABS: LDL CHOLESTEROL,CALCULATED 100.8 (66-159); RISK FACTOR 6.5 RATIO (0-5.0); VLDL CHOLESTEROL 42.2 MG/DL (0-28)
--- NOTE | 2016-10-09 16:49 | DSPDOC ---
MARITO FERREIRA RAINER 10/09/16 1647: General Date Date DATE: 10/09/16 TIME: 16:43 Attending Physician Naresh Perez MD Admitting Physician Naresh Perez MD Consulting Physician Admitting Diagnosis elevated troponin, hypertension Discharge Diagnosis Elevated troponin, hypertension Procedures [place] [id number] Name: MATHIEU BUENO Unit #: [id number] Draft Page 2 of 2 CHIEF COMPLIANCE OFFICER PROCEDURE NOTE Report #: [id number] Dictated By: NARESH PEREZ MD 10/08/161317 Transcribed By: AMALIA LOMAX 10/08/161916 cc: MATHIEU PIMENTEL DO~ [place] [id number] [phone] Dictated By: NARESH PEREZ MD 10/08/161317 Transcribed By: AMALIA LOMAX 10/08/161916 cc: MATHIEU PIMENTEL DO~ CARDIAC CATHETERIZATION DATE OF PROCEDURE October 08, 2016 The patient is a 76-year-old gentleman who was admitted with hypertensive urgency and elevation in troponin and was referred for further evaluation by cardiac catheterization and renal angiography. Informed consent was obtained after explaining the procedure and the potential risks to the patient who agreed to proceed with the procedure. PROCEDURE 1. Left heart catheterization. 2. Coronary angiography. 3. Left ventriculography. 4. Abdominal aortography by placing catheter in abdominal aorta across the renal arteries. 5. Right femoral angiography to visualize the vessel for closure device. 6. Successful Mynx deployment for hemostasis. TECHNIQUE He was prepped and draped in the usual sterile techniques. 1% lidocaine was used for local anesthesia. Using modified Seldinger technique, arterial access was obtained into the right femoral artery with placement of a 6-Slovenian arterial sheath. Conscious sedation was performed using Versed and fentanyl. LEFT VENTRICULOGRAPHY Left ventriculography in single-plane KUMAR shallow projection showed normal LV systolic function with ejection fraction of about 65% with no mitral regurgitation or gradient across the aortic valve. LVEDP was about 14. CORONARY ANGIOGRAPHY Left main was free of significant lesions. Left anterior descending artery was a medium-caliber vessel with minor irregularities but no significant lesions. First diagonal was a [id number] caliber vessel with no significant lesions. Second diagonal was a medium-caliber vessel with no significant lesions. Left circumflex artery had about 20%-30% stenosis proximally with no hemodynamically significant lesions. Right coronary artery had minor irregularities but no significant lesions in RCA, PDA or posterolateral arteries. ABDOMINAL AORTOGRAPHY Abdominal aortography showed smooth abdominal aorta with no significant lesions or aneurysms. There were single renal arteries to each kidney which were widely patent. Right femoral angiography showed patent common femoral, proximal SFA and profunda and therefore Mynx was used for hemostasis. IMPRESSION 1. Mild coronary artery disease as described above. 2. Normal LV systolic function with ejection fraction of about 65%. 3. No significant renal artery stenosis. 4. Successful Mynx deployment for hemostasis. PLAN Medical management. Laboratory Laboratory Tests Test 10/07/16 18:25 10/08/16 00:10 10/08/16 05:51 10/08/16 06:44 White Blood Count 10.2T/MM3 Red Blood Count 4.79M/MM3 Hemoglobin 15.6GM/DL Hematocrit 46.5% Mean Corpuscular Volume 97.1UM3 Mean Corpuscular Hemoglobin 32.6UUG Mean Corpuscular Hemoglobin Concent 33.5GM/DL RDW Standard Deviation 52.9FL Platelet Count 224T/MM3 Mean Platelet Volume 10.3UM3 Immature Granulocyte % (Auto) 0.2% Neutrophils (%) (Auto) 55.8% Lymphocytes (%) (Auto) 34.4% Monocytes (%) (Auto) 8.2% Eosinophils (%) (Auto) 1.2% Basophils (%) (Auto) 0.2% Absolute Immature Granulocyte (auto 0.02T/MM3 Absolute Neutrophils (auto) 5.7T/MM3 Absolute Lymphocytes (auto) 3.5T/MM3 Absolute Monocytes (auto) 0.8T/MM3 Absolute Eosinophils (auto) 0.1T/MM3 Absolute Basophils (auto) 0.0T/MM3 Turbidity < 20 < 20 Sodium Level 145MEQ/L 145MEQ/L Potassium Level 3.8MEQ/L 3.8MEQ/L Chloride Level 106MEQ/L 107MEQ/L Carbon Dioxide Level 28MEQ/L 25MEQ/L Anion Gap 11MEQ/L 13MEQ/L Blood Urea Nitrogen 14.0MG/DL 14.0MG/DL Creatinine 1.2MG/DL 1.2MG/DL Glomerular Filtration Rate Calc 59 59 BUN/Creatinine Ratio 12RATIO 12RATIO Glucose Level 111MG/DL 119MG/DL Calculated Osmolality 281MOSM/KG 281MOSM/KG Calcium Level 9.8MG/DL 9.1MG/DL Icterus Index < 2 < 2 Troponin I 0.140ng/ml 0.136ng/ml 0.172ng/ml Chemistry Specimen Hemolysis < 15 < 15 < 15 Magnesium Level 2.1MG/DL TX-Rfo-X-Type Natriuretic Peptide 70PG/ML Thyroid Stimulating Hormone (TSH) 2.57MIU/L Glucometer 93mg/dL Total Bilirubin 0.40MG/DL Conjugated Bilirubin 0.00MG/DL Unconjugated Bilirubin 0.00MG/DL Aspartate Amino Transf (AST/SGOT) 22U/L Alanine Aminotransferase (ALT/SGPT) 34U/L Alkaline Phosphatase 49U/L Total Protein 6.5G/DL Albumin 3.5G/DL Globulin 3.0G/DL Albumin/Globulin Ratio 1.2RATIO Triglycerides Level 211MG/DL Cholesterol Level 169MG/DL LDL Cholesterol, Calculated 100.8 VLDL Cholesterol 42.2MG/DL HDL Cholesterol Direct 26MG/DL Cholesterol/HDL Ratio 6.5RATIO Test 10/08/16 09:15 10/08/16 10:06 10/08/16 14:04 10/09/16 13:17 Urine Protein 5MG/DL Urine Collection Time 24HRS Urine Total Volume 1.825L Urine Total Protein 24 Hour 91MG/24HR U Toni Duration (Vanillylmandelic) 24 Ur Total Volume (Vanillylmandelic) 1825 U Collect Duration (Catecholamines) 24 Urine Total Volume (Catecholamines) 1825 Glucometer 135mg/dL 96mg/dL Lab Scanned Report LAB TEST FORM [id number] Laboratory Tests Test 10/08/16 05:51 10/08/16 06:44 10/08/16 09:15 10/08/16 10:06 Glucometer 93mg/dL (75-110) 135mg/dL (75-110) Turbidity < 20 (0-20) Sodium Level 145MEQ/L (134-144) Potassium Level 3.8MEQ/L (3.6-5) Chloride Level 107MEQ/L (98-107) Carbon Dioxide Level 25MEQ/L (22-30) Anion Gap 13MEQ/L (5-15) Blood Urea Nitrogen 14.0MG/DL (9-20) Creatinine 1.2MG/DL (0.8-1.5) Glomerular Filtration Rate Calc 59 BUN/Creatinine Ratio 12RATIO (6-26) Glucose Level 119MG/DL (75-110) Calculated Osmolality 281MOSM/KG (261-280) Calcium Level 9.1MG/DL (8.4-10.2) Total Bilirubin 0.40MG/DL (0.20-1.30) Conjugated Bilirubin 0.00MG/DL (0.00-0.30) Unconjugated Bilirubin 0.00MG/DL (0.00-1.10) Icterus Index < 2 (0-7) Aspartate Amino Transf (AST/SGOT) 22U/L (17-59) Alanine Aminotransferase (ALT/SGPT) 34U/L (21-72) Alkaline Phosphatase 49U/L (38-126) Troponin I 0.172ng/ml (0-0.12) Total Protein 6.5G/DL (6.3-8.2) Albumin 3.5G/DL (3.5-5.0) Globulin 3.0G/DL (2.4-3.6) Albumin/Globulin Ratio 1.2RATIO (1.1-2.2) Triglycerides Level 211MG/DL (40-160) Cholesterol Level 169MG/DL (132-199) LDL Cholesterol, Calculated 100.8 (66-159) VLDL Cholesterol 42.2MG/DL (0-28) HDL Cholesterol Direct 26MG/DL (40-60) Cholesterol/HDL Ratio 6.5RATIO (0-5.0) Chemistry Specimen Hemolysis < 15 (0-25) Urine Protein 5MG/DL Urine Collection Time 24HRS Urine Total Volume 1.825L Urine Total Protein 24 Hour 91MG/24HR (42-225) U Toni Duration (Vanillylmandelic) 24 Ur Total Volume (Vanillylmandelic) 1825 U Collect Duration (Catecholamines) 24 Urine Total Volume (Catecholamines) 1825 Test 10/08/16 14:04 10/09/16 13:17 Glucometer 96mg/dL (75-110) Lab Scanned Report LAB TEST FORM [id number] Radiology DATE OF EXAM: 10/08/16 ORDERING DOCTOR: MARITO FERREIRA APRN TYPE OF EXAM: CHEST, PA & LATERAL REASON FOR EXAM: chest pain INDICATION: ITS.REASON: chest pain PROCEDURE: CHEST 2-VIEWS UPRIGHT (PA \T\ LAT) Encounter: Initial COMPARISON: September 09, 2012 Findings: The lungs are stable in appearance without new focal airspace consolidation. There is no pleural effusion or pneumothorax. The heart size, pulmonary vascularity and mediastinal contours are unchanged. IMPRESSION: Stable appearance of the chest without acute cardiopulmonary disease. History of Present Illness This is a 76 year old patient with a history of HTN, CECILIO uses BPAP, DMT2, and BPH who is very active. He has run in marathons in his 70's. He has been jogging and biking until recent injury to left foot. Now [facility] He has been on losartan / HCTZ 100/25mg daily and his BP became low and the BP med was cut in half, but his BP remained low and he was dizzy. Therefore Dr. Pimentel had him stop the BP med. He denies any cardiac history. About 10yrs ago he had a treadmill stress test which was ok. He has low testosterone and on 09/04/2016 he started taking testosterone shots bi weekly given by his who is a retired RN. She checks his BP regularly and his BP has been running 120/80. Yesterday his BP was 140/80 and he took his losartan/ HCTZ 110/25mg. This morning his BP was 150/80 in left arm and 144/76 in the right arm and he took a losartan/HCTZ per 's advise. 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 His first and second finger became numb for about 10 minutes. His left inner forearm had been numb as well. His coworker noted his face was reddened and took his BP which he reported was 210/106, He went home and his brought him into [facility] ER. In ER ECG: SB, HR 47. Trop elevated at 0.14. CBC and BMP all unremarkable. In ER he received ASA, Hydralazine 10mg IV which brought his SBP down to 140's then back up the 180s Dr. Perez was contacted and admitted pt as OBS He denies chest pain, SOB, nausea, diaphoresis, palpitations, headache, blurry vision, or recent sickness. The only pain he has is a slight pain in his left foot/ankle. He does have mild swelling in his ankles enid. He last worked out last week with no chest pain. Objective Vital Signs Telemetry Rhythm: Sinus Rhythm, Sinus Bradycardia Height (Feet): 5 Height (Inches): 11.00 Weight (Kilograms): 102.100 General Alert, Orientated x 3, Cooperative ENMT (Brief) mucosa moist Neck (Brief) NOT FOUND: JVD, carotid bruits Respiratory (Brief) clear all pompa, equal bilaterally, NOT FOUND: rales, wheezes Cardiovascular (Brief) pedal edema, regular rhythm, NOT FOUND: click, gallop, murmur, regular rate ( bradycardic), rub Abdomen (Brief) BS normo active x4, soft Integumentary (Brief) dry, pink, warm Psychiatric (Brief) alert, oriented EKG Sinus Bradycardia Medications Current Medications Aspirin (ASA) 324 mg DAILY PO Last administered on 10/07/16t 19:24; Start 10/08 at 09:00; Stop 10/08/16 at 13:43; Status DC Hydralazine HCl (Apresoline) 10 mg O ONCE IV Last administered on 10/07/16 19 :24; Start 10/07/16 at 19:15; Stop 10/07/16 at 19:16; Status DC Enoxaparin Sodium (Lovenox) 40 mg DAILY SQ ; Start 10/08/16 at 09:00; Stop 10/08 at 17:42; Status DC Aspirin (Ecotrin) 81 mg DAILY PO Last administered on 10/08/16 09:47; Start at 09:00; Stop 10/08/16 at 17:42; Status DC Omeprazole (Prilosec) 20 mg ACB PO Last administered on 10/08/16 05:43; Start 10/08/16 at 06:30; Stop 10/08/16 at 17:42; Status DC HCTZ/Losartan Potassium (Hyzaar 100/25) 1 tab DAILY PO Last administered on 09:47; Start 10/08/16 at 09:00; Stop 10/08/16 at 17:42; Status DC Metoprolol Tartrate (Lopressor) 25 mg BIDWM PO Last administered on 10/08/16 00:06; Start 10/07/16 at 23:00; Stop 10/08/16 at 09:22; Status DC Acetaminophen 650 mg 650 mg Q5H PRN PO DISCOMFORT; Start 10/07/16 at 23:00; Stop 10/08/16 at 13:42; Status DC Sodium Chloride (Normal Saline IV) 1,000 ml @ 75 mls/hr [id number] ONCE IV Last administered on 10/08/16 09:47; Start 10/08/16 at 09:30; Stop 10/08/16 at 17:42 ; Status DC Labetalol HCl (Normodyne) 100 mg BID PO ; Start 10/08/16 at 09:30; Stop at 13:22; Status DC Heparin Sodium/ Sodium Chloride (HEPARIN 1,000units in NS 500ml) 1,000 unit STK- MED ONCE IV ; Start 10/08/16 at 12:33; Stop 10/08/16 at 12:34; Status DC Lidocaine HCl (Xylocaine 1%) 300 mg STK-MED ONCE .ROUTE ; Start 10/08/16 at 12: 33; Stop 10/08/16 at 12:34; Status DC Fentanyl (Fentanyl) 100 mcg STK-MED ONCE .ROUTE ; Start 10/08/16 at 12:48; Stop 10/08/16 at 12:49; Status DC Midazolam HCl (Versed) 2 mg STK-MED ONCE .ROUTE ; Start 10/08/16 at 12:48; Stop 10/08/16 at 12:49; Status DC Iohexol (Omnipaque) 1 bottle STK-MED ONCE .ROUTE ; Start 10/08/16 at 13:15; Stop 10/08/16 at 13:16; Status DC Atropine Sulfate (ATROPINE 1mg INJ) 0.5 mg Q5M PRN IV pulse<40 bpm AND symptomatic; Start 10/08/16 at 13:30; Stop 10/08/16 at 17:42; Status DC Acetaminophen (Tylenol Regular Strength) 325-650 mg Q5H PRN PO PAIN; Start at 13:30; Stop 10/08/16 at 17:42; Status DC Morphine Sulfate (Morphine) 2-4 mg Q5MIN PRN IV ANGINA; Start 10/08/16 at 13:30 ; Stop 10/08/16 at 17:42; Status DC Acetaminophen/ Hydrocodone Bitart (Fillmore 5/325) 1-2 tabs Q5H PRN PO PAIN; Start 10/08/16 at 13:30; Stop 10/08/16 at 17:42; Status DC Promethazine HCl (Phenergan) 12.5-25 mg Q6H PRN IV NAUSEA &/OR VOMITING; Start 10/08/16 at 13:30; Stop 10/08/16 at 17:42; Status DC Nitroglycerin (Nitrostat) 0.4 mg Q5MIN PRN SL ANGINA; Start 10/08/16 at 13:30; Stop 10/08/16 at 17:42; Status DC Magnesium Hydroxide (Mom) 30 ml DAILY PRN PO CONSTIPATION; Start 10/08/16 at 13 :30; Stop 10/08/16 at 17:42; Status DC Bisacodyl (Dulcolax) 5-10 mg DAILY PRN PO CONSTIPATION; Start 10/08/16 at 13:30 ; Stop 10/08/16 at 17:42; Status DC Al Hydroxide/Mg Hydroxide (Maalox) 30 ml Q3H PRN PO INDIGESTION; Start at 13:30; Stop 10/08/16 at 17:42; Status DC Lorazepam (Ativan) 0.5-1 mg Q4H PRN IV ANXIETY; Start 10/08/16 at 13:30; Stop 10/08/16 at 17:42; Status DC Metoclopramide HCl (REGLAN Inj) 5-10 mg Q6H PRN IV NAUSEA &/OR VOMITING; Start 10/08/16 at 13:30; Stop 10/08/16 at 17:42; Status DC Ondansetron HCl (Zofran) 4 mg Q6H PRN IV NAUSEA &/OR VOMITING; Start 10/08/16 at 13:30; Stop 10/08/16 at 17:42; Status DC Amlodipine Besylate (Norvasc) 10 mg DAILY PO Last administered on 10/08/16t 14: 18; Start 10/08/16 at 13:45; Stop 10/08/16 at 17:42; Status DC Hospital Course 10/07/16 NSTEMI - unsure of type. First trop 0.14, trend trop x3 total. ECG: SB no ST changes, no ischemia. Repeat ECG in am. Given ASA 324mg and lovenox 1mg/kg x1 in ER. Start ASA 81mg daily. Denies any chest pain, tightness, or pressure at any time. The numbness in his 1st and 2nd fingers and left forearm lasted only 10min. Maybe a pinched nerve. Elevated trop may be due to HTN. will trend trop. With History of DM, CECILIO, and HTN we will consider heart cath tomorrow around 1:00. vs outpt stress test. Echo to evaluate structure and function of heart. Check fasting lipid profile at 6:30 am. Then may eat breakfast. then NPO for potential heart cath in afternoon. He has muscle aches with statins. not sure of which statins he has tried. SBP at this morning at home was 150 and he took a losartan/HCTZ 100/25 mg this am. At work about noon BP was 210/106. In ER BP 188/91 and HR 50's and received hydralazine at 1830 and 1924 and BP went down and back up to the 180's. Currently SBP 160's and HR 90's. Cot losartan/HCTZ 100/25 mg daily. Add BB per ACS protocol, metoprolol 25mg BID first dose now. His HR is likely to come back down to the 50's and 60's and will need to stop BB. Did not use amlodipine with swelling in ankles. Unsure reason BP is elevated. foot pain is not significant. Hold metformin in case we decide to do a heart cath. FBS and 2 hr pc. Diabetic diet. 10/08/16 Elevated trop :may be due to HTN. With History of DM, CECILIO, and HTN we will do a Left heart catheterization with possible PCI with renal angiogram this afternoon. HTN: Continue losartan/HCTZ 100/25 mg daily. Change BB to Labetalol 100mg BID. Continue to monitor HR. Did not use amlodipine with swelling in ankles. 24 hour Urine for protein, metanephrines, catecholamines, and VMA to start here , may finish as an outpatient. Renal angiogram with heart cath. DM: Hold metformin. FBS and 2 hr pc. Diabetic diet. Problems: (1) Elevated troponin I level Status: Acute (2) Hypertension Status: Acute (3) Obstructive sleep apnea Status: Chronic (4) Diabetes mellitus type 2, controlled Status: Chronic (5) BPH (benign prostatic hyperplasia) Status: Chronic (6) Edema of both ankles Status: Chronic (7) Left foot pain Status: Acute GI Prophylaxis: Pepcid Code Status Full Code Home Meds Active Scripts Nitroglycerin (Nitrostat) 0.4 Mg Tablet, 0.4 MG SL Q5MIN Y for ANGINA for 25 Days, #25 TAB 1 Refill Prov:MARITO FERREIRA APRN 10/08/16 Losartan/Hydrochlorothiazide (Losartan-Hctz 100-25 mg Tab) 1 Each Tablet, 1 TAB PO DAILY for 30 Days, #30 TAB 11 Refills Prov:MARITO FERREIRA APRN 10/08/16 Amlodipine Besylate (Amlodipine Besylate) 10 Mg Tablet, 10 MG PO DAILY for 30 Days, #30 TAB 11 Refills Prov:MARITO FERREIRA APRN 10/08/16 Reported Medications 7-Oxodehydroepiandrosterone,Mc (7-Keto Dhea) 5 Gm Powder, 50 MG PO DAILY 10/07/16 5-Hydroxytryptophan (5-Htp) 50 Mg Capsule, 50 MG PO HS 10/07/16 Gamma-Aminobutyric Acid (Aminobutyric Acid) 1 Gm Powder, 500 MG PO HS 10/07/16 [curcumin] No Conflict Check, 665 MG PO DAILY 10/07/16 Cholecalciferol (Vitamin D3) (Vitamin D3) 5,000 Unit Tablet, 5000 UNIT PO DAILY , 3 Refills 10/07/16 Testosterone Cypionate (Testosterone Cypionate) 200 Mg/1 Ml Vial, 200 MG IM Q2WK 10/07/16 [phytoplankton] No Conflict Check, 5000 MG PO DAILY 10/07/16 Ubidecarenone (Coq-10) 100 Mg Capsule, 100 MG PO DAILY 10/07/16 [vital reds] No Conflict Check, 1 TAB PO DAILY 10/07/16 Metformin Hcl (Metformin Hcl) 1,000 Mg Tablet, 1000 MG PO BID 04/01/11 Multivitamins (Multivitamin) 1 Tab Tablet, 1 TAB PO DAILY 04/01/11 Aspirin (Aspir 81) 81 Mg Tablet.dr, 81 MG PO [email or web address] 04/01/11 Discharge Disposition Discharged to home in the care of himself in good and stable condition with 24hour urine collection to finish as an outpatient and RX for New Amlodipine 10mg daily and SL nitro if needed. Copies To 1: MATHIEU PIMENTEL HOSSEIN MD 10/09/16 1730: Hospital Course Home Meds Active Scripts Nitroglycerin (Nitrostat) 0.4 Mg Tablet, 0.4 MG SL Q5MIN Y for ANGINA for 25 Days, #25 TAB 1 Refill Prov:MARITO FERREIRA APRN 10/08/16 Losartan/Hydrochlorothiazide (Losartan-Hctz 100-25 mg Tab) 1 Each Tablet, 1 TAB PO DAILY for 30 Days, #30 TAB 11 Refills Prov:MARITO FERREIRA APRN 10/08/16 Amlodipine Besylate (Amlodipine Besylate) 10 Mg Tablet, 10 MG PO DAILY for 30 Days, #30 TAB 11 Refills Prov:MARITO FERREIRA APRN 10/08/16 Reported Medications 7-Oxodehydroepiandrosterone,Mc (7-Keto Dhea) 5 Gm Powder, 50 MG PO DAILY 10/07/16 5-Hydroxytryptophan (5-Htp) 50 Mg Capsule, 50 MG PO HS 10/07/16 Gamma-Aminobutyric Acid (Aminobutyric Acid) 1 Gm Powder, 500 MG PO HS 10/07/16 [curcumin] No Conflict Check, 665 MG PO DAILY 10/07/16 Cholecalciferol (Vitamin D3) (Vitamin D3) 5,000 Unit Tablet, 5000 UNIT PO DAILY , 3 Refills 10/07/16 Testosterone Cypionate (Testosterone Cypionate) 200 Mg/1 Ml Vial, 200 MG IM Q2WK 10/07/16 [phytoplankton] No Conflict Check, 5000 MG PO DAILY 10/07/16 Ubidecarenone (Coq-10) 100 Mg Capsule, 100 MG PO DAILY 10/07/16 [vital reds] No Conflict Check, 1 TAB PO DAILY 10/07/16 Metformin Hcl (Metformin Hcl) 1,000 Mg Tablet, 1000 MG PO BID 04/01/11 Multivitamins (Multivitamin) 1 Tab Tablet, 1 TAB PO DAILY 04/01/11 Aspirin (Aspir 81) 81 Mg Tablet., 81 MG PO [email or web address] 04/01/11 Discharge Disposition After examining the patient I agree with the above assessment. I am involved in the formulation of the patient's plan of care. Copies To 1: MATHIEU PIMENTEL AMY M APRN Oct 09, 2016 16:47 NARESH PEREZ MD Oct 09, 2016 17:30
--- OUTSIDE RECORDS SUMMARY | 2016-10-10 15:30 | XMS REPORT | Continuity of Care Document ---
Author Author [facility] Organization [facility] Address Unknown Phone Unavailable Support Name Relationship Address Phone LISETTE RABAGO MD Caregiver [address] [place] [address] [place] [address] Unavailable LISETTE RABAGO MD Caregiver [address] [place] [address] [place] [address] Unavailable MAGUI SCHAEFER DO Caregiver [address] [place] [address] Unavailable MATHIEU PIMENTEL DO Caregiver [address] [place] [address] Unavailable REYES BUENO Next Of Kin [address] [place] [address] Insurance Providers Guarantor Mathieu Bueno Address [address] [place] [address] CP Email DENIED 10-07-16 Payer [employer] Ppo Policy Number [id number] Subscriber's Name Mathieu Bueno Relationship 18 Self Group Number [id number] Advance Directives Directive Response Recorded Date/Time Advanced Directives Type None 10/07/16 5:25pm Ordered Resuscitation Status Full Code 10/07/16 7:05pm DPOA for Healthcare Only Y SANGITA 10/07/16 10:33pm Living Will Yes 10/07/16 7:51pm Problems Active Problems Medical Problem Onset Date Status BPH (benign prostatic hyperplasia) Unknown Chronic Diabetes mellitus type 2, controlled Unknown Chronic Edema of both ankles Unknown Chronic Elevated troponin I level Unknown Acute Hypertension Unknown Acute Left foot pain Unknown Acute Obstructive sleep apnea Unknown Chronic Medications Current Home Medications Medication Dose Units Route Directions Days Qty Instructions Start Date 5-Hydroxytryptophan (5-Htp) 50 Mg Capsule 50 Mg Oral Bedtime 7-Oxodehydroepiandrosterone,Mc (7-Keto Dhea) 5 Gm Powder 50 Mg Oral Daily 10/07/16 Amlodipine Besylate 10 Mg Tablet 10 Mg Oral Daily 30 Days 30 Tablet 10/08/16 Aspirin (Aspir 81) 81 Mg Tablet. 81 Mg Oral Mowefr@Hs 04/01/11 Cholecalciferol (Vitamin D3) (Vitamin D3) 5,000 Unit Tablet 5,000 Unit Oral Daily 10/07/16 Curcumin 665 Mg Oral Daily 10/07/16 Gamma-Aminobutyric Acid (Aminobutyric Acid) 1 Gm Powder 500 Mg Oral Bedtime 10/07/16 Losartan/Hydrochlorothiazide (Losartan-Hctz 100-25 Mg Tab) 1 Each Tablet 1 Tab Oral Daily 30 Days 30 Tablet 10/08/16 Metformin Hcl 1,000 Mg Tablet 1,000 Mg Oral Twice A Day 04/01/11 Multivitamins (Multivitamin) 1 Tab Tablet 1 Tab Oral Daily Nitroglycerin (Nitrostat) 0.4 Mg Tablet 0.4 Mg Sublingual Every 5 Minutes X 3 as needed for Angina 25 Days 25 Tablet 10/08/16 Phytoplankton 5,000 Mg Oral Daily 10/07/16 Testosterone Cypionate 200 Mg/1 Ml Vial 200 Mg Intramusc Every 2 Weeks 10/07/16 Ubidecarenone (Coq-10) 100 Mg Capsule 100 Mg Oral Daily 10/07/16 Vital Reds 1 Tab Oral Daily 10/07/16 Past Home Medications Medication Directions Ordered Status Glucosamine Hcl 1,500 Mg Tablet, 1500 Mg Oral Bedtime 04/01/11 Discontinued Losartan Potassium (Cozaar) 100 Mg Tablet, 100 Mg Oral Daily 04/01/11 Discontinued Ubidecarenone (Co Q-10) 10 Mg Capsule, 10 Mg Oral Daily 04/01/11 Discontinued Zolpidem Tartrate (Ambien) 10 Mg Tablet, 10 Mg Oral .5 Tab At Hs 04/01/11 Discontinued Social History Social History Problem Response Recorded Date/Time Onset Date Status Reason for Hospitalization elevated troponin 10/08/2016 4:16pm Not Applicable Not Applicable Chewing Tobacco Status No 05/31/2013 7:49am Not Applicable Not Applicable Hx Substance Use No 10/07/2016 5:40pm Not Applicable Not Applicable Hx Alcohol Use Y 1 per mo 10/07/2016 5:40pm Not Applicable Not Applicable Has the pt used tobacco in the last 12 months No 10/07/2016 7:52pm Not Applicable Not Applicable Query Response Start Date Stop Date Smoking Status Never smoker Hospital Discharge Instructions Instructions: Care Instructions: I was in the hospital because (patient own words): "HIGH BLOOD PRESSURE" Discharge Diet: Resume heart healthy diet Discharge Activity: Limit activity for 2 days. No lifting more than 10 pounds, no pushing or pulling for 1 week. Follow Up Appointments: Follow up with Dr. Rabago on: 10/29/16 at 9:30 Expect a phone call from Cardiac Rehab to schedule an appointment for you. If you have any questions, please contact Cardiac Rehab at: [phone]. Pending Lab / Results: No Pending Lab Patient Instructions: Do not drive, operate machinery or drink alcohol for 2 days. New prescriptions: Amlodipine 10mg daily. Take and record your BP 2-3X/week and bring recordings to follow up appointment. Continue to take your Losartan/ HCTZ and you may resume Metformin on Thursday morning. Expected Signs/Symptoms: Bruising and tenderness at the site. Notify Physician If: Site is bleeding, abnormal drainage, increased pain or fever of 101.5 or more. During Business Hours:: Call Dr. Rabago's office at [phone]. After Business Hours:: Please call [phone] and have the fiberglass machine operator page the physician. Pain Management/Treatment: Over the counter pain medication if needed. Pain Scale Utilized to Educate Patient: 0-10 Pain Scale Wound/Incision Care: Keep site clean and dry. No tub baths or swimming for 1 week. You may shower. Condition at time of discharge: Good Plan of Care Discharge Date 10/08/16 5:15pm Disposition 01 DISCHARGED HOME, SELF-CARE Instructions/Education Provided [facility] Heart Cath Heart Catheterization (DC) Prescriptions See Medication Section Care Plan and Goals See Discharge Instructions Section Functional Status Query Response Date Recorded Mobility Status Ambulatory October 07, 2016 8:14pm Assistive Devices None October 07, 2016 8:14pm Activity Limitations None October 07, 2016 8:14pm Feeding Ability Independent October 07, 2016 8:14pm Toileting Ability Independent October 07, 2016 8:14pm Grooming Ability Independent October 07, 2016 8:14pm Dressing Ability Independent October 07, 2016 8:14pm Driving Ability Independent October 07, 2016 8:14pm Housework Ability Independent October 07, 2016 8:14pm Meal Preparation Ability Independent October 07, 2016 8:14pm Stair Climbing Ability Independent October 07, 2016 8:14pm Ability to complete ADL's impeded by No change October 07, 2016 8:14pm Cognitive/Perceptual Impairments None October 07, 2016 8:14pm Hearing Assistive Devices With patient October 07, 2016 8:14pm Allergies, Adverse Reactions, Alerts Allergen Type Severity Reaction Status Last Updated Penicillin Allergy Unknown Active 04/01/11 Lisinopril Adverse Reaction Unknown COUGH Active 05/30/13 Immunizations Query Response on File Recorded Date/Time Hx Influenza Vaccination Y fall 201510/07/16 7:52pm Hx Pneumococcal Vaccination Yes 10/07/16 7:52pm Hx Influenza Vaccination Y fall 201510/07/16 7:52pm Influenza Vaccine Hx 03/201610/07/16 5:40pm Vital Signs Acute Vital Signs Vital Response Date/Time Temperature (Fahrenheit) 97.8 deg F (96.8 - 99.1) 10/08/2016 4:30pm Temperature (Calculated Celsius) 36.99234 degrees C (36.0 - 37.3) 10/08/2016 4:30pm Temperature Source Oral 10/08/2016 4:30pm Pulse Rate (adult) 66 bpm (60 - 100) 10/08/2016 4:30pm Respiratory Rate 17 breaths/min (10 - 20) 10/08/2016 4:30pm O2 Sat by Pulse Oximetry 97 % (90 - 100) 10/08/2016 4:30pm Oxygen Delivery Method Room Air 10/08/2016 4:30pm Oxygen Delivery Method Room Air 10/08/2016 12:30pm Blood Pressure 126/68 mm Hg 10/08/2016 4:30pm Blood Pressure Source Automatic Cuff 10/08/2016 4:30pm Height (Feet) 5 feet 10/08/2016 9:50am Height (Inches) 11.00 inches 10/08/2016 9:50am Weight (Kilograms) 102.100 kg 10/08/2016 8:06am Body Mass Index (BMI) 31.6 10/07/2016 7:49pm Results Laboratory Results Test Name Result Units Flags Reference Collection Date/Time Result Date/ Time Comments White Blood Count 10.2 T/MM3 4.5-11.0 10/07/2016 6:25pm 10/07/2016 6: 34pm Red Blood Count 4.79 M/MM3 4.50-5.90 10/07/2016 6:25pm 10/07/2016 6: 34pm Hemoglobin 15.6 GM/DL 13.5-17.5 10/07/2016 6:10/07/2016 6:34pm Hematocrit 46.5 % 41-53 10/07/2016 6:10/07/2016 6:34pm Mean Corpuscular Volume 97.1 UM3 80-100 10/07/2016 6:10/07/2016 6: 34pm Mean Corpuscular Hemoglobin 32.6 UUG 26-34 10/07/2016 6:2016 6:34pm Mean Corpuscular Hemoglobin Concent 33.5 GM/DL 31-37 10/07/2016 6:10/07/2016 6:34pm RDW Standard Deviation 52.9 FL H 36.9-50.2 10/07/2016 6:10/07/2016 6:34pm Platelet Count 224 T/MM3 130-400 10/07/2016 6:10/07/2016 6:34pm Mean Platelet Volume 10.3 UM3 9.4-12.4 10/07/2016 6:10/07/2016 6: 34pm Neutrophils (%) (Auto) 55.8 % 33-66 10/07/2016 6:10/07/2016 6: 34pm Lymphocytes (%) (Auto) 34.4 % 23-45 10/07/2016 6:10/07/2016 6: 34pm Monocytes (%) (Auto) 8.2 % 0-9.0 10/07/2016 6:10/07/2016 6:34pm Eosinophils (%) (Auto) 1.2 % 0-4 10/07/2016 6:10/07/2016 6:34pm Basophils (%) (Auto) 0.2 % 0-2 10/07/2016 6:10/07/2016 6:34pm Immature Granulocyte % (Auto) 0.2 % 0.0-0.5 10/07/2016 6:2016 6:34pm Absolute Neutrophils (auto) 5.7 T/MM3 1.8-7.7 10/07/2016 6:2016 6:34pm Absolute Lymphocytes (auto) 3.5 T/MM3 1-4.8 10/07/2016 6:2016 6:34pm Absolute Monocytes (auto) 0.8 T/MM3 0-0.8 10/07/2016 6:25pm 10/07/2016 6:34pm Absolute Eosinophils (auto) 0.1 T/MM3 0-0.5 10/07/2016 6:25pm 2016 6:34pm Absolute Basophils (auto) 0.0 T/MM3 0-0.2 10/07/2016 6:25pm 10/07/2016 6:34pm Absolute Immature Granulocyte (auto 0.02 T/MM3 0.00-0.03 10/07/2016 6: 25pm 10/07/2016 6:34pm Icterus Index < 2 0-7 10/08/2016 6:44am 10/08/2016 7:03am Chemistry Specimen Hemolysis < 15 0-25 10/08/2016 6:44am 10/08/2016 7 :14am 0-25: Specimen Exhibited No Hemolysis. Turbidity < 20 0-20 10/08/2016 6:44am 10/08/2016 7:03am Sodium Level 145 MEQ/L H 134-144 10/08/2016 6:44am 10/08/2016 7:03am Potassium Level 3.8 MEQ/L 3.6-5 10/08/2016 6:44am 10/08/2016 7:03am Chloride Level 107 MEQ/L 98-107 10/08/2016 6:44am 10/08/2016 7:03am Carbon Dioxide Level 25 MEQ/L 22-30 10/08/2016 6:44am 10/08/2016 7: 03am Anion Gap 13 MEQ/L 5-15 10/08/2016 6:44am 10/08/2016 7:03am Blood Urea Nitrogen 14.0 MG/DL 9-20 10/08/2016 6:44am 10/08/2016 7: 03am Creatinine 1.2 MG/DL 0.8-1.5 10/08/2016 6:44am 10/08/2016 7:03am BUN/Creatinine Ratio 12 RATIO 12-0810/08/2016 6:44am 10/08/2016 7:03am Glomerular Filtration Rate Calc 59 10/08/2016 6:44am 10/08/2016 7: 03am Glucose Level 119 MG/DL H 75-110 10/08/2016 6:44am 10/08/2016 7:03am Calculated Osmolality 281 MOSM/KG H 261-280 10/08/2016 6:44am 2016 7:03am Calcium Level 9.1 MG/DL 8.4-10.2 10/08/2016 6:44am 10/08/2016 7:03am Total Bilirubin 0.40 MG/DL 0.20-1.30 10/08/2016 6:44am 10/08/2016 7: 03am Unconjugated Bilirubin 0.00 MG/DL 0.00-1.10 10/08/2016 6:44am 2016 7:03am Conjugated Bilirubin 0.00 MG/DL 0.00-0.30 10/08/2016 6:44am 10/08/2016 7:03am Alkaline Phosphatase 49 U/L 38-126 10/08/2016 6:44am 10/08/2016 7:03am Total Protein 6.5 G/DL 6.3-8.2 10/08/2016 6:44am 10/08/2016 7:03am Albumin 3.5 G/DL 3.5-5.0 10/08/2016 6:44am 10/08/2016 7:03am Globulin 3.0 G/DL 2.4-3.6 10/08/2016 6:44am 10/08/2016 7:03am Albumin/Globulin Ratio 1.2 RATIO 1.1-2.2 10/08/2016 6:44am 10/08/2016 7 :03am Aspartate Amino Transf (AST/SGOT) 22 U/L 17-59 10/08/2016 6:44am 2016 7:03am Alanine Aminotransferase (ALT/SGPT) 34 U/L 21-72 10/08/2016 6:44am 7:03am Troponin I 0.172 ng/ml H 0-0.12 10/08/2016 6:44am 10/08/2016 7:14am Troponin values greater than 0.120 ng/ml are considered a critical value. Troponin values with a difference of 55% increase from orginal troponin value represent a true biological DELTA value. (%increase Calc=Orginal Troponin value, divided by subsequent Troponin value, multiplied by 100) DL-Nac-T-Type Natriuretic Peptide 70 PG/ML 0-175 10/08/2016 12:10am 12:49am Rule in cut points: <50 years old=450; 50-75 years old=900; >75 years old=1800; When utilizing ProBNP rule-in cut points, adjustment for impaired renal function is typically not required. Magnesium Level 2.1 MG/DL 1.6-2.3 10/08/2016 12:10am 10/08/2016 12: 40am Thyroid Stimulating Hormone (TSH) 2.57 MIU/L 0.47-4.68 10/08/2016 12: 10am 10/08/2016 1:11am Glucometer 96 mg/dL 75-110 10/08/2016 2:04pm 10/08/2016 2:09pm Name: MATHIUE BUENO Unit #: [id number] : 1940 Sex: M Admit Date: 10/07/16 Loc / Svc: SRG Discharge Date: DIAGNOSTIC IMAGING REPORT Report #: [id number] [facility] [place] INDICATION: ITS.REASON: chest pain PROCEDURE: CHEST 2-VIEWS UPRIGHT (PA \\T\\ LAT) Encounter: Initial COMPARISON: September 09, 2012 Findings: The lungs are stable in appearance without new focal airspace consolidation. There is no pleural effusion or pneumothorax. The heart size, pulmonary vascularity and mediastinal contours are unchanged. IMPRESSION: Stable appearance of the chest without acute cardiopulmonary disease. . Procedures No known history of procedures. Encounters Encounter Location Arrival/Admit Date Discharge/Depart Date Attending Provider Discharged Inpatient (obs) [facility] 10/07/16 7:05pm 10/08/16 5: 15pm LISETTE RABAGO MD
--- OUTSIDE RECORDS SUMMARY | 2016-10-10 15:30 | XMS REPORT | Continuity of Care Document ---
Author Author [facility] Organization [facility] Address Unknown Phone Unavailable Allergies Medications Problems Date Dx Coded Attending Type Code Diagnosis Diagnosed By 06/29/2013 Sapna UNDERWOOD, Dionte Eaton [phone] OBSTRUCTIVE SLEEP APNEA (ADULT) (PEDIATRIC ) Procedures Results Encounters ACCT No. Visit Date/Time Discharge Status Pt. Type Provider Facility Loc./Unit Complaint [id number] 06/29/2013 20:00:00 2013 00:01:00 DIS Outpatient Sapna UNDERWOOD, Dionte English [facility]
--- NOTE | 2016-10-14 14:07 | NUR ---
ATTEMPTED [facility] FOLLOW UP PHONE CALL #1, NO ANSWER, LEFT VOICE MESSAGE TO RETURN CALL TO CM.
== END 2016-10-08 17:15 | disposition home or self-care (01) ==
LOC: ED 17:21 → EDHOLD 19:05 → SRG 19:05 → CATH 19:05 → UNDOADMOB 19:05 → EDHOLD 19:40 → SRG 19:40 → CATH 10-08 17:15 → UNDODISOB 10-08 17:15
PROVIDERS: ATTEND Internal Medicine Cardiovascular Disease
DX: I16.0 Hypertensive urgency (principal); R79.89 Other specified abnormal findings of blood chemistry; I25.10 Atherosclerotic heart disease of native coronary artery without angina pectoris; F41.9 Anxiety disorder, unspecified; F32.9 Major depressive disorder, single episode, unspecified; E11.9 Type 2 diabetes mellitus without complications; E78.00 Pure hypercholesterolemia, unspecified; G47.33 Obstructive sleep apnea (adult) (pediatric); N40.1 Benign prostatic hyperplasia with lower urinary tract symptoms; N35.8 Other urethral stricture; R60.0 Localized edema; M79.672 Pain in left foot; Z79.84 Long term (current) use of oral hypoglycemic drugs; Z79.82 Long term (current) use of aspirin; Z79.899 Other long term (current) drug therapy; Z99.89 Dependence on other enabling machines and devices; Z87.440 Personal history of urinary (tract) infections; Z82.3 Family history of stroke; Z79.890 Hormone replacement therapy
CPT/HCPCS: 36415; 71020; 73630; 80048; 80053; 80061; 82248; 82384; 82570; 82948; 83735; 83835; 83880; 84156; 84443; 84484; 84585; 85025; 93005; 93306; 93458; 96361; 96372; 96374; 96376; 99284; A9270; C1760; C1887; C1893; G0378; J0360; J1644; J1650; J2250; J3010; J7030; Q9967; 36000; 99218